=== PATIENT | male | born 1970 | race Caucasian/White ===

== ENCOUNTER 2023-04-02 11:50 | Emergency (ER) | payer OTHER, SELFPAY ==
[2023-04-02 11:51] VITALS: BP 124/87; PULSE 58; RESP 14; TEMP 36.3; O2SAT 98; BMI 30.6
--- NOTE | 2023-04-02 12:06 | EDS_ITS ---
HPI <MANNY Rivera - Last Filed: 04/02/23 15:13> HPI - GI History of Present Illness Chief Complaint: Abd Pain Narrative Narrative: Patient presenting today with right lower quadrant constant sharp pain that has been waxing and waning since around 5:30 AM this morning. He reports that the pain does at times radiate to his right flank. He reports that he is concerned for appendicitis. He has intermittent nausea but denies fever, chills, vomiting, constipation, diarrhea, melena/hematochezia, and urinary symptoms. Previous abdominal surgery includes cholecystectomy. He denies a PMH of any chronic health conditions. PFSH <MANNY Rivera - Last Filed: 04/02/23 15:13> PFSH Medical History (Updated 04/02/23 @ 13:50 by MANNY Rivera) Cholecystectomy planned Home Medications ketorolac 10 mg tablet 10 mg PO Q6H PRN pain 4 days #14 tabs 04/02/23 [Rx Last Taken Unknown] oxycodone-acetaminophen 5 mg-325 mg tablet (Percocet) 1 tab PO Q8H PRN pain 3 days #6 tabs 04/02/23 [Rx Last Taken Unknown] tamsulosin 0.4 mg capsule (Flomax) 0.4 mg PO DAILY 5 days #5 caps 04/02/23 [Rx Last Taken Unknown] Allergy/AdvReac Type Severity Reaction Status Date / Time No Known Allergies Allergy Verified 04/02/23 11:51 Social History Smoking Status: Current some day smoker tobacco type: smokeless tobacco ROS <MANNY Rivera - Last Filed: 04/02/23 15:13> ROS ED Constitutional Constitutional ED: Denies chills or fever(s) Cardiovascular Cardiovascular: Denies chest pain Respiratory/Chest Respiratory/Chest: Denies cough or dyspnea Gastrointestinal Gastrointestinal: Reports abdominal pain and nausea; Denies constipation, diarrhea, melena or vomiting Genitourinary Genitourinary ED: Denies dysuria, hematuria or urinary urgency Musculoskeletal Musculoskeletal: Reports back pain; Denies arthralgias or myalgias Integumentary Denies rash Neurologic Neurologic: Denies weakness EXAM <MANNY Rivera - Last Filed: 04/02/23 15:13> Physical Exam Const Vital Signs: 04/02/23 11:51 Temperature 97.3 F L Temperature Source Temporal Pulse Rate 58 L Respiratory Rate 14 Blood Pressure 124/87 H Blood Pressure Mean 99 Pulse Ox 98 Oxygen Delivery Method Room Air Positive well nourished, well developed and no apparent distress General Appearance ED: well developed HEENT Reports normocephalic and head/scalp atraumatic Mouth ED: Yes moist mucous membranes normal Eyes PERRL and EOMs intact bilaterally Neck full ROM and supple Chest Wall inspection of chest normal Resp normal respiratory effort and clear to auscultation bilaterally Cardio regular rate and regular rhythm GI soft to palpation, non-distended and no masses GI Narrative: Slight pain to McBurney's point without any rigidity, guarding, or peritoneal signs. Negative Rovsing sign. Negative Carr sign. Back/Spine normal ROM and normal to inspection General Back: Negative for CVA tenderness Extremity normal to inspection and full ROM Neuro oriented x3, CN's II-XII intact bilaterally, moves all extremities, no focal motor deficits and no sensory deficits noted Sensorium / Orientation: awake and alert Psych mental status grossly normal and thought process normal Skin no rashes or lesions noted and no wounds <Dr. Osvaldo Paris MD - Last Filed: 04/02/23 12:23> Physical Exam Const Vital Signs: 04/02/23 11:51 Temperature 97.3 F L Temperature Source Temporal Pulse Rate 58 L Respiratory Rate 14 Blood Pressure 124/87 H Blood Pressure Mean 99 Pulse Ox 98 Oxygen Delivery Method Room Air MDM <MANNY Rivera - Last Filed: 04/02/23 15:13> [facility] Narrative Medical decision making narrative: Patient presenting today with right lower quadrant abdominal pain that he has had constantly since 5:30 AM. The pain is waxing and waning. He reports concerns for appendicitis. The pain does at times radiate to the right flank. No history of kidney stones. Labs will be obtained to rule out leukocytosis, anemia, electrolyte abnormality, KAMERON, and UTI. CT of the abdomen and pelvis will be obtained to rule out appendicitis, kidney stone, bowel obstruction, and other etiology. I did offer pain and nausea medication, patient declines at this time. CT pelvis does show a right sided kidney stone at the UVJ that is 3 mm. He was given Toradol for pain. He will be given a prescription for Flomax, Percocet, and Toradol. He has been given a strainer for home. He will be discharged home in stable condition and is comfortable with plan. Lab Data Attestation: I reviewed the patient's lab results. Lab results narrative: CBC unremarkable, CMP shows BUN 19, creatinine 1.36, total bilirubin 1.6 UA WNL Labs: Laboratory Results - last 24 hr 04/02/23 04/02/23 12:00 13:15 WBC 9.4 RBC 4.65 Hgb 14.1 Hct 41.3 MCV 88.8 MCH 30.3 MCHC 34.1 RDW Std Deviation 40.0 RDW Coeff of Erna 12.3 Plt Count 221 MPV 9.3 Immature Gran % (Auto) 0.400 Neut % (Auto) 77.0 H Lymph % (Auto) 12.8 L [place] % (Auto) 7.7 Eos % (Auto) 1.7 Baso % (Auto) 0.4 Absolute Neuts (auto) 7.2 Absolute Lymphs (auto) 1.20 Nucleated RBC % 0 Sodium 141 Potassium 4.4 Chloride 111 H Carbon Dioxide 27.0 Anion Gap 3 L BUN 19 H Creatinine 1.36 H Estim Creat Clear Calc 65.60 Est GFR (MDRD) Af Amer 71 Est GFR (MDRD) Non-Af 58 L BUN/Creatinine Ratio 14.0 Glucose 97 Calcium 9.0 Total Bilirubin 1.60 H AST 15 ALT 35 Alkaline Phosphatase 63 Total Protein 6.5 Albumin 3.6 Globulin 2.9 Albumin/Globulin Ratio 1.2 Urine Color Yellow Urine Clarity Clear Urine pH 6.0 Ur Specific [place] 1.020 Urine Protein 15 H Urine Glucose (UA) Normal Urine Ketones Negative Urine Occult Blood Negative Urine Nitrite Negative Urine Bilirubin Negative Urine Urobilinogen Normal Ur Leukocyte Esterase Negative Urine RBC 0 SEEN Urine WBC 0 SEEN Ur Squamous Epith Cells 0 SEEN Urine Bacteria 0 SEEN Urine Mucus 0 SEEN Radiography Diagnostic Testing: Clinical Impression(s) from Imaging Studies Abdomen/Pelvis CT 04/02/23 13:05 IMPRESSION: Mild right hydronephrosis secondary to a 3 mm UVJ calculus. Small cyst in the hepatic dome. Borderline splenomegaly. Electronically Signed: Adela Vital MD at 13:22 EST , <Dr. Osvaldo Paris MD - Last Filed: 04/02/23 12:23> [facility] Lab Data Labs: Laboratory Results - last 24 hr 04/02/23 04/02/23 12:00 13:15 WBC 9.4 RBC 4.65 Hgb 14.1 Hct 41.3 MCV 88.8 MCH 30.3 MCHC 34.1 RDW Std Deviation 40.0 RDW Coeff of Erna 12.3 Plt Count 221 MPV 9.3 Immature Gran % (Auto) 0.400 Neut % (Auto) 77.0 H Lymph % (Auto) 12.8 L [place] % (Auto) 7.7 Eos % (Auto) 1.7 Baso % (Auto) 0.4 Absolute Neuts (auto) 7.2 Absolute Lymphs (auto) 1.20 Nucleated RBC % 0 Sodium 141 Potassium 4.4 Chloride 111 H Carbon Dioxide 27.0 Anion Gap 3 L BUN 19 H Creatinine 1.36 H Estim Creat Clear Calc 65.60 Est GFR (MDRD) Af Amer 71 Est GFR (MDRD) Non-Af 58 L BUN/Creatinine Ratio 14.0 Glucose 97 Calcium 9.0 Total Bilirubin 1.60 H AST 15 ALT 35 Alkaline Phosphatase 63 Total Protein 6.5 Albumin 3.6 Globulin 2.9 Albumin/Globulin Ratio 1.2 Urine Color Yellow Urine Clarity Clear Urine pH 6.0 Ur Specific [place] 1.020 Urine Protein 15 H Urine Glucose (UA) Normal Urine Ketones Negative Urine Occult Blood Negative Urine Nitrite Negative Urine Bilirubin Negative Urine Urobilinogen Normal Ur Leukocyte Esterase Negative Urine RBC 0 SEEN Urine WBC 0 SEEN Ur Squamous Epith Cells 0 SEEN Urine Bacteria 0 SEEN Urine Mucus 0 SEEN Radiography Diagnostic Testing: Clinical Impression(s) from Imaging Studies Abdomen/Pelvis CT 04/02/23 13:05 IMPRESSION: Mild right hydronephrosis secondary to a 3 mm UVJ calculus. Small cyst in the hepatic dome. Borderline splenomegaly. Electronically Signed: Adela Vital MD at 13:22 EST Reading Location ID and State: [facility] / [place] Tel , Service support , Treatment and Re-Evaluation Comments:: I have personally performed a face to face assessment of the patient and have reviewed the SIMRAN Note. I performed a substantive portion of the visit including all aspects of the following. My sanchez findings include: History is sudden onset of severe pain 6 or 7 hours prior to arrival, right flank. It is a little bit in the right lower quadrant, radiates a little bit into the low back, some nausea and is colicky. No history of abdominal surgeries in the past. Never had this before. No history of stones that he knows of. Exam is NAD. Minor reproducible tenderness in the lateral aspect of the right lower quadrant but no McBurney's point tenderness, no CVA tenderness. Normal on inspection. Benign abdomen otherwise. Medical Decison Making Labs, urine, CT, analgesics. Suspect kidney stone/ureterolithiasis, however appendicitis in the differential as well, as well as pyelonephritis but the history is more consistent with ureterolithiasis. Other additions or changes: [None] Discharge Plan Triage Chief Complaint: Abd Pain ED Midlevel Provider: Alma Valdez ED Provider: Osvaldo Paris Dx/Rx/DC Orders Clinical Impression: Kidney stone on right side Instructions: ED Kidney Stone with Pain Prescriptions: New tamsulosin [Flomax] 0.4 mg capsule 0.4 mg PO DAILY 5 Days Qty: 5 0RF oxycodone-acetaminophen [Percocet] 5-325 mg tablet 1 tab PO Q8H PRN (Reason: pain) 3 Days Qty: 6 0RF ketorolac 10 mg tablet 10 mg PO Q6H PRN (Reason: pain) 4 Days Qty: 14 0RF Primary Care Provider: Skinny Uriarte Referrals: Skinny Uriarte DO [Primary Care Provider] - 3-5 Days Activity Restrictions/Additional Instructions: Follow-up with your PCP and return for any worsening of your symptoms. Disposition Disposition: Home, Self Care Discharge Date/Time: 04/02/23 14:05
[2023-04-02 12:32] LABS: Absolute Neutrophil Count 7.2 X10^3/uL (2.0-7.7); Basophil# 0.04 X10^3/uL; Basophil% 0.4 % (0-1); Eosinophil# 0.16 X10^3/uL; Eosinophils% 1.7 % (0-5); Hematocrit 41.3 % (40-54); Hemoglobin 14.1 g/dL (13.0-16.5); Lymphocyte % 12.8 % (19-41); Mean Corp Hgb Conc 34.1 g/dL (32-36); Mean Corpuscular Hgb 30.3 pg (27.0-32.0); Mean Corpuscular Volume 88.8 fL (80-94); Mean Platelet Vol. 9.3 fl (6.2-12.0); Monocyte# 0.72 X10^3/uL; Monocyte% 7.7 % (0-10); NRBC Flagged by Analyzer 0 % (0-5); Platelet Count 221 K/mm3 (150-450); RBC Distribution Width CV 12.3 % (11.6-14.6); Red Blood Count 4.65 M/mm3 (4.6-6.2); White Blood Count 9.4 K/mm3 (4.4-11.0)
[2023-04-02 12:50] LABS: ALB/GLOB Ratio 1.2 RATIO (0.9-2.4); AST(SGOT) 15 U/L (15-37); Alanine Aminotransfer ALT/SGPT 35 U/L (16-61); Albumin, Serum 3.6 g/dL (3.2-5.0); Alkaline Phosphatase 63 U/L (45-117); Anion Gap 3 (5-15); BUN 19 mg/dL (7-18); Chloride 111 mmol/L (98-107); Creatinine, Serum 1.36 mg/dL (0.70-1.30); EST Glomerular Filtration Rate 58 mL/min (>60); Est Glom Filt Rate - Afr Amer 71 mL/min (>60); Globulin 2.9 g/dL (2.2-4.2); Glucose 97 mg/dL (74-106); Potassium 4.4 mmol/L (3.5-5.1); Protein, Total 6.5 g/dL (6.4-8.2); Sodium Level 141 mmol/L (136-145)
--- NOTE | 2023-04-02 13:05 | CT_ITS ---
HISTORY: Right sided abdominal pain, evaluate kidney stone. TECHNIQUE: Helically acquired images were obtained of the abdomen and pelvis without oral or IV contrast. A radiation dose optimization technique was used for this scan. 426 images. COMPARISON: None. FINDINGS: LOWER CHEST: Lung bases clear. BOWEL: Bowel including appendix nondilated. No terminal ileal, periappendiceal, or focal pericolonic inflammatory change. PERITONEUM: No significant free fluid. LIVER: 7 mm cyst in the dome. GALLBLADDER/BILIARY TREE: Gallbladder not visualized. SPLEEN: 13.5 cm in length. PANCREAS/ADRENAL GLANDS: Unremarkable. KIDNEYS AND URETERS: Mild right perinephric stranding and hydronephrosis secondary to a 3 mm ureterovesical junction calculus. No left nephrolithiasis or hydronephrosis. VESSELS: No abdominal aortic aneurysm. PELVIC ORGANS: Unremarkable. ABDOMINAL WALL: Small fat-containing left inguinal hernia. BONES: Bilateral L3 spondylolysis with grade 1 spondylolisthesis. Chronic mild T9 anterior wedging. CT/Abdomen/Pelvis without Cont IMPRESSION: Mild right hydronephrosis secondary to a 3 mm UVJ calculus. Small cyst in the hepatic dome. Borderline splenomegaly. Electronically Signed: Adela Vital MD at 13:22 EST ,
[2023-04-02 13:21] LABS: Bacteria 0 SEEN /hpf (None Seen); Mucous, Urine 0 SEEN /hpf (<or=2+); Red Blood Cells-Urine 0 SEEN /hpf (0-5); Squamous Epithelial Cells - UA 0 SEEN /hpf (0-5); White Blood Cells 0 SEEN /hpf (0-5)
[2023-04-02 13:23] LABS: Color, Urine Yellow (Yellow); Glucose, Dipstick Normal (Normal); Ketone-Dipstick Negative (Negative); Leukocyte Esterase-Dipstick Negative /ul (Negative); Nitrite-Dipstick Negative (Negative); Occult Blood-Urine Negative /ul (Negative); Protein-Dipstick 15 mg/dl (Negative); Urine Bilirubin Dipstick Negative (Negative); Urine Clarity Clear (Clear); Urine Urobilinogen Normal (Normal)
[2023-04-02] MEDS: Ketorolac 15 MG/ML Vial IV (13:50)
== END 2023-04-02 14:05 | disposition home or self-care (01) ==
PROVIDERS: Physician Assistant; Emergency Provider Emergency Medicine; PCP Family Medicine; Visit Provider Emergency Medicine
DX: N13.2 Hydronephrosis with renal and ureteral calculous obstruction (principal); Z90.49 Acquired absence of other specified parts of digestive tract; F17.290 Nicotine dependence, other tobacco product, uncomplicated
CPT/HCPCS: 74176; 80053; 81001; 85025; 96374; 99283; A4216